=== PATIENT | male | born 1980 | race Caucasian/White ===

== ENCOUNTER 2024-07-31 09:45 | Inpatient (IN) ==
--- NOTE | 2024-07-31 10:13 | Emergency Department Note ---
History of Present Illness General Chief complaint: Chest Pain Stated complaint: CHEST PAINS, DIZZY Time Seen by Provider: 07/31/24 09:50 History of Present Illness Maximum Pain Intensity: 7 This is a 44-year-old male with a history of hypertension, hyperlipidemia, type 2 diabetes that presents to the emergency department via private vehicle with complaints of "chest pain, dizzy". The patient notes that today while walking up steps outside he began to feel lightheaded and then had chest pain. This is left anterior chest region. This was about 45 minutes prior to arrival. He notes now that he is resting the pain has resolved. He states that while going up the steps and developing a dizziness and chest pain he also felt like his legs became weak bilaterally but that has also resolved. The patient denies any history of MD or PE. No recent leg swelling. The patient does note that the dizziness has improved as well. No speech trouble. No weakness. No preceding or current illness. No fevers. Patient does believe his father had an MD prior to age 65 but not his mother. Home Medications Medication Instructions Recorded Confirmed Type acetaminophen 500 mg tablet 500 mg PO Q6H PRN Pain 07/31/24 07/31/24 History cholecalciferol (vitamin D3) 1,250 50,000 unit PO WK 07/31/24 07/31/24 History mcg (50,000 unit) capsule cyclobenzaprine 10 mg tablet 10 mg PO HS PRN Muscle Spasm 07/31/24 07/31/24 History ibuprofen 200 mg tablet (Advil) 200 mg PO Q6H PRN Pain 07/31/24 07/31/24 History lisinopril 10 mg tablet 10 mg PO HS 07/31/24 07/31/24 History paroxetine HCl 10 mg tablet 10 mg PO QAM 07/31/24 07/31/24 History paroxetine HCl 20 mg tablet 20 mg PO QAM 07/31/24 07/31/24 History rosuvastatin 10 mg tablet 10 mg PO HS 07/31/24 07/31/24 History tirzepatide 7.5 mg/0.5 mL 7.5 mg subcut WK 07/31/24 07/31/24 History subcutaneous pen injector (Mounjaro) Allergies Allergy/AdvReac Type Severity Reaction Status Date / Time No Known Allergies Allergy Unverified 07/31/24 12:21 Past Med/Surg History Problem List (Updated 07/31/24 @ 14:32 by Kenny Rahman PA-C) Dizziness (Acute) Chest pain (Acute) Medical History (Updated 07/31/24 @ 14:32 by Kenny Rahman PA-C) DM2 (diabetes mellitus, type 2) HTN (hypertension) HLD (hyperlipidemia) Chest pain, rule out acute myocardial infarction Surgical History (Updated 07/31/24 @ 13:25 by GRECIA King) No pertinent past surgical history Family History (Updated 07/31/24 @ 13:25 by GRECIA King) Brother Heart disease Father Heart disease Social History (Updated 07/31/24 @ 13:26 by GRECIA King) Smoking Status: Former smoker Tobacco Type: Cigarettes Smoking End Date: 04/01; Second Hand Exposure: No; Do You Dip or Chew Tobacco: No; Tobacco Cessation Education Requested by Patient: No Hx Alcohol Use: No Hx Substance Use: Yes (occasional THC gummy) Preferred Language: Welsh Feels Safe at Home: Yes Review of Systems A total of 10 systems reviewed and were otherwise negative Physical Exam Vital Signs Vital Signs - 24 hr 07/31/24 09:48 07/31/24 10:02 07/31/24 10:07 Temperature 36.8 C Temperature Source Oral Pulse Rate 82 81 Pulse Rate [Apical] Pulse Strength [Apical] Respiratory Rate 18 Respiratory Effort / Characteristics Respiratory Depth Respiratory Pattern Blood Pressure 121/84 Blood Pressure [Left Arm] Blood Pressure Mean 96 Blood Pressure Mean [Left Arm] Blood Pressure Position Sitting Blood Pressure Position [Left Arm] Pulse Oximetry 100 96 Oxygen Delivery Method Room Air Room Air Sepsis Recent Fever Within 48 Hours No Sepsis New/Unexplained Change in Mental Status No Sepsis Action Taken by Nursing No Action Required 07/31/24 10:50 07/31/24 12:00 Temperature Temperature Source Pulse Rate Pulse Rate [Apical] 79 87 Pulse Strength [Apical] Normal Respiratory Rate 19 20 Respiratory Effort / Characteristics Non-Labored Spontaneous Non-Labored Spontaneous Respiratory Depth Normal Normal Respiratory Pattern Regular Blood Pressure Blood Pressure [Left Arm] 129/86 106/72 Blood Pressure Mean Blood Pressure Mean [Left Arm] 100 83 Blood Pressure Position Blood Pressure Position [Left Arm] Semi-fowlers Pulse Oximetry 100 100 Oxygen Delivery Method Room Air Room Air Sepsis Recent Fever Within 48 Hours Sepsis New/Unexplained Change in Mental Status Sepsis Action Taken by Nursing VITAL SIGNS - Vital signs and nursing notes were reviewed. Stable and afebrile. GENERAL -44-year-old male appearing his stated age who is in no acute distress. Communicates well with provider and answers questions appropriately. SKIN - Without rashes. No meningeal or petechial rash. HEAD - NC/AT. EYES - PERRL with EOMI bilaterally. Sclera anicteric. EARS - No deformities of external structures noted on gross examination bilaterally. External auditory canals without discharge or otorrhea. Tympanic membranes pearly ibrahim without retraction or bulging. No fluid or purulent material visualized behind the TM. Handle of malleus, umbo, cone of light, pars tensa/flaccid all easily visualized. NOSE - Midline and without cyanosis. No epistaxis or purulent drainage noted. Septum midline without deviation or septal hematoma noted. MOUTH/OROPHARYNX - Without perioral cyanosis. NECK - Neck with FROM. No nuchal rigidity. LUNGS - Chest wall symmetric without accessory muscle use, intercostals retractions, or central cyanosis. Normal vesicular breath sounds CTA B/L. No wheezes, rales, or rhonchi appreciated. CARDIAC - RRR ABDOMEN - Abdominal contour normal without pulsations or visible masses. BS normoactive all four quadrants. No tenderness, palpable masses, hepatosplenomegaly, or ascites noted. EXTREMITIES - No clubbing or peripheral cyanosis. +5/5 strength noted in UE/LE bilaterally. NEUROLOGIC - Cranial nerves II through XII grossly intact. PSYCH -alert, oriented and pleasant on examination. Course Administered Medications Sodium Chloride (Nss) 500 mls @ 125 mls/hr IV .Q4H REPLACED BY [facility] Stop: 07/31/24 16:29 Last Admin: 07/31/24 12:31 Dose: 125 mls/hr Documented By: MMF Discontinued Medications Aspirin (Aspirin 81 Mg Chew) 324 mg PO NOW STA Stop: 07/31/24 11:07 Last Admin: 07/31/24 11:11 Dose: 324 mg Documented By: RAINA Ioversol (Optiray 320 125ml) 120 ml IV ONCE ONE Stop: 07/31/24 11:35 Last Admin: 07/31/24 11:34 Dose: 120 ml Documented By: TENZIN Medical Decision Making Laboratory Data 07/31/24 10:10 07/31/24 10:10 Lab Results 07/31/24 Range/Units 10:10 WBC 13.62 H (4.8-10.8) K/ul RBC 4.63 L (4.70-6.10) M/uL Hgb 14.7 (14.0-18.0) g/dl Hct 43.4 (42.0-52.0) % MCV 93.7 (80.0-100.0) fL MCH 31.7 (25.0-34.0) pg MCHC 33.9 (32.0-36.0) g/dL RDW Std Deviation 45.2 (36.4-46.3) fL RDW Coeff of Shannon 13.2 (11.5-14.5) % Plt Count 375 (130-400) K/uL MPV 10.3 (9.4-12.4) fL Immature Gran % (Auto) 0.2 % Neut % (Auto) 66.6 % Lymph % (Auto) 23.6 % Howard % (Auto) 6.8 % Eos % (Auto) 2.6 % Baso % (Auto) 0.2 % Neut # (Auto) 9.07 H (1.40-6.50) K/uL Lymph # (Auto) 3.21 (1.20-3.40) K/uL Howard # (Auto) 0.92 H (0.11-0.59) K/uL Eos # (Auto) 0.36 (0.00-0.50) K/uL Baso # (Auto) 0.03 (0.00-0.20) K/uL Immature Gran # (Auto) 0.03 (0.01-0.20) K/uL PT 10.7 (9.0-12.0) Seconds INR 1.0 (0.9-1.1) APTT 27 (21-31) Seconds PTT Ratio 1.0 D-Dimer < 190 (0-500) ug/L FEU Sodium 138 (136-145) mmol/L Potassium 4.3 (3.5-5.1) mmol/L Chloride 103 (98-107) mmol/L Carbon Dioxide 26 (21-32) mmol/L Anion Gap 9 (3-11) BUN 15 (6-23) mg/dl Creatinine 0.88 (0.6-1.4) mg/dl Est Cr Clr Drug Dosing 133.4 ml/min eGFR 108.07 BUN/Creatinine Ratio 17.0 (10-20) Glucose 102 H (70-99(Fasting)) mg/dl Calcium 9.5 (8.6-10.3) mg/dl Magnesium 1.7 (1.7-2.4) mg/dl Total Bilirubin 0.5 (0.2-1.0) mg/dl AST 17 (13-39) U/L ALT 17 (7-52) U/L Alkaline Phosphatase 98 (34-104) U/L Troponin I High Sens < 2.3 (0-20) pg/ml Total Protein 7.3 (6.0-8.3) gm/dl Albumin 4.3 (3.4-5.0) gm/dl Globulin 3.0 (2.5-4.0) gm/dl Albumin/Globulin Ratio 1.4 (0.9-2) Lipase 26 (11-82) U/L TSH 1.451 (0.300-4.500) uIu/ml Imaging Data Radiologist's Impression: Chest X-Ray 07/31/24 10:12 XR chest 1V portable CLINICAL HISTORY: chest pain COMPARISON STUDY: None FINDINGS: Heart size and pulmonary vasculature are normal. No effusion, consolidation, or pneumothorax. IMPRESSION: No acute findings. ACT 112: Negative or not required by law. Electronically signed by: Bari Meade M.D. 07/31/2024 10:42 AM Chest CTA 07/31/24 10:48 CT angio chest PE protocol CT DOSE: 1728.37 mGy.cm HISTORY: 44 years-old Male with dizziness, exertional chest pain. Acute dizziness with chest pain TECHNIQUE: Multiple CTA images of the chest were obtained after the intravenous administration of 120 ml Optiray. Coronal and sagittal MIPS were obtained from the axial data set and were submitted for review. All measurements were obtained according to NASCET criteria. A dose lowering technique was utilized adhering to the principles of ALARA. COMPARISON: Chest radiograph of same day FINDINGS: CTA: Heart is upper limits of normal in size. No pericardial effusion. No thoracic aortic aneurysm or dissection. Patency of the imaged vessels. No pulmonary emboli are identified. CT CHEST: No dominant thyroid nodule is seen. No pathologically adenopathy by CT size criteria. There is no pneumothorax, pleural effusion or focal airspace consolidation. The imaged upper abdominal structures are unremarkable. Cholecystectomy with probable splenic tissue within the abdominal left upper quadrant. Mild nodular thickening of the adrenal glands, right greater than left. The osseous structures appear intact. IMPRESSION: Unremarkable CTA of the chest. ACT 112: Negative or not required by law. The above report was generated using voice recognition software. It may contain grammatical, syntax or spelling errors. Electronically signed by: Cholo Frankel M.D. 07/31/2024 12:06 PM Head CTA 07/31/24 10:48 CT angio head wo/w CLINICAL HISTORY: dizziness, exertional chest pain COMPARISON STUDY: None FINDINGS: Noncontrast head CT: No intracranial hemorrhage seen. No mass effect, midline shift, or hydrocephalus. No skull fracture seen. CTA: The distal internal carotid and vertebral arteries show no significant narrowing or occlusion. Basilar artery is widely patent. Anterior, middle, and posterior cerebral arteries show no significant narrowing or occlusion. No intracranial aneurysm seen. Cerebral venous sinuses opacify normally. IMPRESSION: 1. No acute findings seen. 2. No significant arterial narrowing or occlusion seen at the brain. ACT 112: Negative or not required by law. Electronically signed by: Bari Meade M.D. 07/31/2024 12:02 PM Neck CTA 07/31/24 10:48 CT angio neck with con CLINICAL HISTORY: 44 years-old Male with dizziness, exertional chest pain. Acute dizziness with chest pain COMPARISON STUDY: CTA of the head of same day TECHNIQUE: Following the IV administration of 1 20 mL of Optiray, CT angiogram of the neck was performed from the aortic arch to the skull base. Images are reviewed in the axial, sagittal, and coronal planes. 3-D MIPS images are created and assessed. IV contrast was administered without complication. All measurements were calculated based on NASCET criteria. A dose lowering technique was utilized adhering to the principles of ALARA. FINDINGS: Three-vessel morphology of the thoracic aortic arch. Patency of the innominate and image subclavian arteries. The common and internal carotid arteries are widely patent and within normal limits. There is no significant atherosclerosis. The vertebral arteries are codominant and widely patent. No aneurysm, dissection, high-grade stenosis or arterial occlusion identified. Lung apices are clear. No pneumothorax. Unremarkable thyroid. Nonenlarged cervical chain lymph nodes are likely physiologic. No acute inflammatory changes. No acute fracture. IMPRESSION:Unremarkable CTA of the neck. ACT 112: Negative or not required by law. The above report was generated using voice recognition software. It may contain grammatical, syntax or spelling errors. Electronically signed by: Cholo Frankel M.D. 07/31/2024 11:56 AM MDM Narrative Patient was seen and evaluated as above in room B12. Review was performed of triage nursing notes and vital signs. No visits for review in the EMR at time of evaluation. After obtaining a thorough history and physical examination the above work up was performed. Patient presents to us today for evaluation of exertional chest pain as well as dizziness. On assessment the patient is well- appearing and nontoxic. He has had essentially resolution of symptoms at this time now that he is resting. No history of MD or PE. Options of care were discussed with the patient. IV access was established. Labs were drawn. There is leukocytosis 13.62. No concerning anemia. No emergent metabolic disturbance. D-dimer negative making PE less likely. Coags normal. No evidence of kidney or liver failure. Mild hyperglycemia 102. Initial troponin returned negative. Lipase normal. TSH reveals euthyroid state. EKG per my interpretation reveals normal sinus rhythm at a rate of 87 bpm. QTc 464. QRS 94. No ST elevation on this rhythm tracing. Indication for the EKG is chest pain. Aspirin was ordered. NIHSS: 0. He continues to note some dizziness with movements of the head. At this time with the patient having dizziness and exertional chest pain we will proceed with angio studies of the head, neck and chest to further assess. These returned without significant finding. I did discuss case with Dr. Elkins of cardiology. We agree with hospitalist admission, trend troponin, resting echocardiogram, and Doppler studies of the lower extremities (noting that patient's reported leg symptoms earlier today) with the associated exertional chest pain and dizziness. The patient does have risk factors which would increase risk of cardiovascular event. With the patient and exertional symptoms, I do believe that further evaluation and management in the inpatient setting is warranted. Case discussed with the hospitalist service. Please refer to further documentation regarding his stay. GCS: 15 In the evaluation and treatment of this patient the following differential diagnoses were entertained: MD, PE, dissection, hypoglycemia, dehydration, upper respiratory illness, among others. Impression & Plan Chest pain, Dizziness Discharge Plan Visit Data Chief Complaint: Chest Pain Stated Complaint: CHEST PAINS, DIZZY ED Provider: Ellis Singh ED Midlevel Provider: Kenny Rahman Discharge Problem: Chest pain, Dizziness Patient Disposition: Admitted As Inpatient Condition: Good Discharge Instructions Interventions: ED Discharge Assessment Last Done: 07/31/24 13:02
[2024-07-31 10:16] LABS: Basophils # (auto) 0.03 K/uL (0.00-0.20); Basophils % (auto) 0.2 %; Eosinophils # (auto) 0.36 K/uL (0.00-0.50); Eosinophils % (auto) 2.6 %; Hematocrit (blood only) 43.4 % (42.0-52.0); Hemoglobin 14.7 g/dl (14.0-18.0); Immature Granulocytes # (auto) 0.03 K/uL (0.01-0.20); Immature Granulocytes % (auto) 0.2 %; Lymphocytes # (auto) 3.21 K/uL (1.20-3.40); Lymphocytes % (auto) 23.6 %; Mean Corpuscular Hemoglobin 31.7 pg (25.0-34.0); Mean Corpuscular Hgb Conc 33.9 g/dL (32.0-36.0); Mean Corpuscular Volume 93.7 fL (80.0-100.0); Mean Platelet Volume 10.3 fL (9.4-12.4); Monocytes # (auto) 0.92 K/uL (0.11-0.59); Monocytes % (auto) 6.8 %; Neutrophils # (auto) 9.07 K/uL (1.40-6.50); Neutrophils % (auto) 66.6 %; Platelet Count 375 K/uL (130-400); RDW Coefficient of Variation 13.2 % (11.5-14.5); RDW Standard Deviation 45.2 fL (36.4-46.3); Red Blood Count 4.63 M/uL (4.70-6.10); White Blood Count 13.62 K/ul (4.8-10.8)
[2024-07-31 10:35] LABS: D Dimer < 190 ug/L FEU (0-500); Partial Thromboplastin Time 27 Seconds (21-31); Prothrombin Time 10.7 Seconds (9.0-12.0)
--- NOTE | 2024-07-31 10:43 | XRay Report ---
XR chest 1V portable CLINICAL HISTORY: chest pain COMPARISON STUDY: None FINDINGS: Heart size and pulmonary vasculature are normal. No effusion, consolidation, or pneumothora x. IMPRESSION: No acute findings. ACT 112: Negative or not required by law. Electronically signed by: Bari Meade M.D. 07/31/2024 10:42 AM
[2024-07-31 10:52] LABS: Albumin Level 4.3 gm/dl (3.4-5.0); Anion Gap 9 (3-11); Bilirubin,Total 0.5 mg/dl (0.2-1.0); Calcium 9.5 mg/dl (8.6-10.3); Carbon Dioxide 26 mmol/L (21-32); Chloride 103 mmol/L (98-107); Magnesium 1.7 mg/dl (1.7-2.4); Potassium 4.3 mmol/L (3.5-5.1); Sodium 138 mmol/L (136-145)
[2024-07-31 10:56] LABS: Troponin I High Sensitivity < 2.3 pg/ml (0-20)
[2024-07-31 10:58] LABS: Alanine Aminotransferase 17 U/L (7-52); Albumin Globulin Ratio 1.4 (0.9-2); Alkaline Phosphatase 98 U/L (34-104); Aspartate Aminotransferase 17 U/L (13-39); Blood Urea Nitrogen 15 mg/dl (6-23); Creatinine Clr Calc Pharmacy 133.4 ml/min; Glucose 102 mg/dl (70-99(Fasting)); Lipase 26 U/L (11-82); Total Protein 7.3 gm/dl (6.0-8.3)
[2024-07-31 11:05] LABS: Thyroid Stimulating Hormone 1.451 uIu/ml (0.300-4.500)
[2024-07-31] MEDS: ASPIRIN 81 MG CHEW PO STA (11:11)
[2024-07-31] MEDS: OPTIRAY 320 125ml IV ONE (11:34)
--- NOTE | 2024-07-31 11:57 | CT Scan Report ---
CT angio neck with con CLINICAL HISTORY: 44 years-old Male with dizziness, exertional chest pain. Acute dizziness with ch est pain COMPARISON STUDY: CTA of the head of same day TECHNIQUE: Following the IV administration of 1 20 mL of Optiray, CT angiogram of the neck was perfor med from the aortic arch to the skull base. Images are reviewed in the axial, sagittal, and coronal p lanes. 3-D MIPS images are created and assessed. IV contrast was administered without complication. A ll measurements were calculated based on NASCET criteria. A dose lowering technique was utilized adh ering to the principles of ALARA. FINDINGS: Three-vessel morphology of the thoracic aortic arch. Patency of the innominate and image subclavian a rteries. The common and internal carotid arteries are widely patent and within normal limits. There i s no significant atherosclerosis. The vertebral arteries are codominant and widely patent. No aneurys m, dissection, high-grade stenosis or arterial occlusion identified. Lung apices are clear. No pneumothorax. Unremarkable thyroid. Nonenlarged cervical chain lymph nodes are likely physiologic. No acute inflammatory changes. No acute fracture. IMPRESSION:Unremarkable CTA of the neck. ACT 112: Negative or not required by law. The above report was generated using voice recognition software. It may contain grammatical, syntax o r spelling errors. Electronically signed by: Cholo Frankel M.D. 07/31/2024 11:56 AM
--- NOTE | 2024-07-31 12:04 | CT Scan Report ---
CT angio head wo/w CLINICAL HISTORY: dizziness, exertional chest pain COMPARISON STUDY: None FINDINGS: Noncontrast head CT: No intracranial hemorrhage seen. No mass effect, midline shift, or hydrocephalus . No skull fracture seen. CTA: The distal internal carotid and vertebral arteries show no significant narrowing or occlusion. B asilar artery is widely patent. Anterior, middle, and posterior cerebral arteries show no significant narrowing or occlusion. No intracranial aneurysm seen. Cerebral venous sinuses opacify normally. IMPRESSION: 1. No acute findings seen. 2. No significant arterial narrowing or occlusion seen at the brain. ACT 112: Negative or not required by law. Electronically signed by: Bari Meade M.D. 07/31/2024 12:02 PM
--- NOTE | 2024-07-31 12:07 | CT Scan Report ---
CT angio chest PE protocol CT DOSE: 1728.37 mGy.cm HISTORY: 44 years-old Male with dizziness, exertional chest pain. Acute dizziness with chest pain TECHNIQUE: Multiple CTA images of the chest were obtained after the intravenous administration of 120 ml Optiray. Coronal and sagittal MIPS were obtained from the axial data set and were submitted for review. All measurements were obtained according to NASCET criteria. A dose lowering technique was u tilized adhering to the principles of ALARA. COMPARISON: Chest radiograph of same day FINDINGS: CTA: Heart is upper limits of normal in size. No pericardial effusion. No thoracic aortic aneurysm or diss ection. Patency of the imaged vessels. No pulmonary emboli are identified. CT CHEST: No dominant thyroid nodule is seen. No pathologically adenopathy by CT size criteria. There is no pn eumothorax, pleural effusion or focal airspace consolidation. The imaged upper abdominal structures are unremarkable. Cholecystectomy with probable splenic tissue within the abdominal left upper quadrant. Mild nodular thickening of the adrenal glands, right great er than left. The osseous structures appear intact. IMPRESSION: Unremarkable CTA of the chest. ACT 112: Negative or not required by law. The above report was generated using voice recognition software. It may contain grammatical, syntax o r spelling errors. Electronically signed by: Cholo Frankel M.D. 07/31/2024 12:06 PM
[2024-07-31] MEDS ORDERED: MAGNESIUM HYDROXIDE SUSP 30 ML UDC PO PRN (12:29)
[2024-07-31] MEDS ORDERED: POLYETHYLENE (MIRALAX) 17 GM PACK PO PRN (12:29)
[2024-07-31] MEDS ORDERED: ONDANSETRON INJ 2 MG/ML 2 ML VIAL IV PRN (12:29)
[2024-07-31] MEDS ORDERED: ALUMINUM/MAGNESIUM SUSP 30 ML UDC PO PRN (12:29)
[2024-07-31] MEDS ORDERED: ACETAMINOPHEN 325 MG TAB PO PRN (12:29)
[2024-07-31] MEDS: SODIUM CHLORIDE 0.9% 500 ML IV SCH (12:31)
--- NOTE | 2024-07-31 12:36 | History & Physical Report ---
<Statement entered by Jovani Matthews, DO - 07/31/24 16:05> I have seen and examined the patient and have discussed the case with the advance practice provider. I have reviewed the advanced practitioner's documentation, and I agree with, and take responsibility for that plan of care. Patient seen while still in the ED. States that he has been diagnosed with diabetes hypertension around [place]. Started Mounjaro, since starting this medication he is lost 100 pounds. Patient gives classic history of some lightheadedness and dizziness when waking up in the morning from the lying down position. Also his Dexcom noted that he is having some hypoglycemia below 70 early in the morning. I am concerned that much of the patient's symptoms are due to the fact that he has having some hypotension and hypoglycemia due to the medication started for his diabetes and hypertension. With his significant weight loss I suspect he may not need as higher doses of these medications or even need any blood pressure medication at all. Will check orthostatic vitals The if blood pressure continues to remain low, consider discontinuing lisinopril on discharge Consider decreasing Mounjaro or holding until patient can follow-up with his PCP Further recommendations for ischemic eval pending cardiology evaluation Further plan of care as mentioned below I spent a total of 26 minutes coordinating, documenting, and providing care for this patient excluding time spent by another provider/QHP. Date of Service July 31, 2024 Assessment & Plan (1) Chest pain, rule out acute myocardial infarction: (2) HLD (hyperlipidemia): (3) HTN (hypertension): (4) DM2 (diabetes mellitus, type 2): Plan 44y/o male that presents to the ED with exertional chest pain resolving with rest that started after climbing two flights of steps this morning with radiation into his jaw causing twitching. Recently diagnosed with DM2, HTN and HLD around gi.Family History of AMI (brother and father). mild leukocytosis 13.62, otherwise electrolytes unremarkable. No transaminitis, initial troponin negative, D-dimer negative. He was started on IV fluids in the ED and loading dose of aspirin. Chest CTA, head/neck CTA, and CXR all unremarkable and no signs of dissection or stenosis. We will trend Troponin levels, obtain ECHO, ortho BPs, obtain biofire, UA, and obtain formal Cardiology consultation. Will hold Lisinopril given soft BP and will ask glycemic pharmacy to monitor. Please see A/P for further information. Chest pain, R/O ACS: Acute Exertional chest pain while climbing two flights of stairs this AM. Lightheadedness and weakness associated with symptoms. Initial trop negative; trend ECG NSR Electrolytes unremarkable Chest CTA, head/neck CTA, and CXR all unremarkable and no signs of dissection or stenosis Brother and father with H/O AMI Quit smoking 5 months ago ECHO ordered Obtain Orthostatic BPs Cardiology consultation DM2: Newly diagnosed 03/2024 Takes Mounjaro (compliant); hold inpatient. Reports 90 lb weight loss since Mar 2024. Usually takes dose on Wednesdays Has DEXcom for monitoring; AM glucose 70-90's Placed on ACHS SSI No A1C available at the moment; check in AM Glycemic consult Should follow with nurse educator on DC HTN: Chronic Takes lisinopril; hold for now given soft BP HLD: Chronic Takes rosuvastatin; continue Depression: Takes Paxil; continue Disposition: PCP: [facility] Code Status: Full VTE Prophyalxis: Lovenox SQ Care Coordinated with Dr. Matthews. See his addendum for further details. I spent a total of 81 minutes coordinating, documenting, and providing care for this patient excluding time spent inthe performance of separately billed services or time spent by another provider/QHP. History of Present Illness Chief Complaint: exertional chest pain Primary Care Provider: GRECIA Coley Mr. Chun is a 44 year old male that presents to the ED with exertional chest pain resolving with rest that started after climbing two flights of steps this morning with radiation into his jaw causing twitching. He also reports lightheadedness and weakness. He reports that he has felt confused over the past month intermittently with some blurry vision. He was recently diagnosed with DM2, HTN and HLD around . He reports losing nearly 90 lbs since and is compliant with his medications. Blood sugars range 80-90 in the morning. May be a component of his dose requiring adjustment given his weight loss. Family History of AMI (brother and father). reportedly quit smoking 5 months ago. No alcohol use, occasional recreational THC gummy. In the ED, mild leukocytosis 13.62, otherwise electrolytes unremarkable. No transaminitis, initial troponin negative, D-dimer negative. He was started on IV fluids in the ED and loading dose of aspirin. Chest CTA, head/neck CTA, and CXR all unremarkable and no signs of dissection or stenosis. Reports that [place] medical care [place] of [place] in [place], [place] and his symptoms started just before for which a stress test was performed as an outpatient and negative. 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 He reports he has had green sputum that started a few days ago. Otherwise, denies current Chest pain, palpitations, SOB, orthopnea, N/V/D, recent falls or trauma. For now, given the persistent symptoms he has been having over the past few months, he will be admitted for further evaluation and management. We will trend Troponin levels, obtain ECHO, ortho BPs, obtain biofire, UA, and obtain formal Cardiology consultation. Will hold Lisinopril given soft BP and will ask glycemic pharmacy to monitor. Please see A/P for further information. Allergies Allergy/AdvReac Type Severity Reaction Status Date / Time No Known Allergies Allergy Unverified 07/31/24 12:21 Home Medications Medication Instructions Recorded Confirmed Type acetaminophen 500 mg tablet 500 mg PO Q6H PRN Pain 07/31/24 07/31/24 History cholecalciferol (vitamin D3) 1,250 50,000 unit PO WK 07/31/24 07/31/24 History mcg (50,000 unit) capsule cyclobenzaprine 10 mg tablet 10 mg PO HS PRN Muscle Spasm 07/31/24 07/31/24 History ibuprofen 200 mg tablet (Advil) 200 mg PO Q6H PRN Pain 07/31/24 07/31/24 History lisinopril 10 mg tablet 10 mg PO HS 07/31/24 07/31/24 History paroxetine HCl 10 mg tablet 10 mg PO QAM 07/31/24 07/31/24 History paroxetine HCl 20 mg tablet 20 mg PO QAM 07/31/24 07/31/24 History rosuvastatin 10 mg tablet 10 mg PO HS 07/31/24 07/31/24 History tirzepatide 7.5 mg/0.5 mL 7.5 mg subcut WK 07/31/24 07/31/24 History subcutaneous pen injector (Mounmorenaro) Past Med/Surg History Problem List Medical History (Updated 07/31/24 @ 13:25 by GRECIA King) DM2 (diabetes mellitus, type 2) HTN (hypertension) HLD (hyperlipidemia) Chest pain, rule out acute myocardial infarction Surgical History (Updated 07/31/24 @ 13:25 by GRECIA King) No pertinent past surgical history Family History (Updated 07/31/24 @ 13:25 by GRECIA King) Brother Heart disease Father Heart disease Social History (Updated 07/31/24 @ 13:26 by GRECIA King) Smoking Status: Former smoker Tobacco Type: Cigarettes Second Hand Exposure: No; Do You Dip or Chew Tobacco: No; Hx Alcohol Use: No Hx Substance Use: Yes (occasional THC gummy) Preferred Language: Occitan Feels Safe at Home: Yes Review of Systems Review of Systems: Neuro: (-) Falls, trauma, slurred speech HEENT: (-) BELCHER, dizziness, dysphagia, visual or auditory changes CV: (-) CP, palpitations, swelling Resp: (-) SOB GI: (-) appetite changes, N/V/D, bowel changes : (-) urinary changes Skin: (-) rashes Psych: (-) anxiety, depression Physical Exam Physical Exam: Neuro: AAOx4, PERRLA, no aphagia, memory changes, CNII-XII grossly intact HEENT: head normocephalic, moist mucus membranes CV: S1/S2, (-) M/G/R, (-) edema, cap refill < 3 seconds Resp: Lungs CTA in all sullivan. On RA GI: Abdomen S/NT/ND, Ax4 bowel sounds, (-) CVA tenderness Musculoskeletal: 5/5 B/L UE strength, 5/5 B/L LE strength. No gait disturbance Skin: (-) rashes , (-) erythema. Psych: euthymic, but flat mood Results & Data Results & Data Vital Signs (Past 12 Hours) Vital Signs Temp Pulse Pulse Resp BP BP Pulse Ox 07/31/24 12:00 87 20 106/72 100 07/31/24 10:50 79 19 129/86 100 07/31/24 10:07 96 07/31/24 10:02 81 07/31/24 09:48 36.8 C 82 18 121/84 100 O2 Del Method 07/31/24 12:00 Room Air 07/31/24 10:50 Room Air 07/31/24 10:07 Room Air 07/31/24 10:02 07/31/24 09:48 Room Air Laboratory Results Short CBC 07/31/24 Range/Units 10:10 WBC 13.62 H (4.8-10.8) K/ul Hgb 14.7 (14.0-18.0) g/dl Hct 43.4 (42.0-52.0) % Plt Count 375 (130-400) K/uL BMP 07/31/24 10:10 Sodium 138 Potassium 4.3 Chloride 103 Carbon Dioxide 26 BUN 15 Creatinine 0.88 Glucose 102 H Calcium 9.5 Liver Function 07/31/24 Range/Units 10:10 Total Bilirubin 0.5 (0.2-1.0) mg/dl AST 17 (13-39) U/L ALT 17 (7-52) U/L Alkaline Phosphatase 98 (34-104) U/L Albumin 4.3 (3.4-5.0) gm/dl Diagnostic Findings Chest X-Ray 07/31/24 10:12 XR chest 1V portable CLINICAL HISTORY: chest pain COMPARISON STUDY: None FINDINGS: Heart size and pulmonary vasculature are normal. No effusion, consolidation, or pneumothorax. IMPRESSION: No acute findings. ACT 112: Negative or not required by law. Electronically signed by: Bari Meade M.D. 07/31/2024 10:42 AM Chest CTA 07/31/24 10:48 CT angio chest PE protocol CT DOSE: 1728.37 mGy.cm HISTORY: 44 years-old Male with dizziness, exertional chest pain. Acute dizziness with chest pain TECHNIQUE: Multiple CTA images of the chest were obtained after the intravenous administration of 120 ml Optiray. Coronal and sagittal MIPS were obtained from the axial data set and were submitted for review. All measurements were obtained according to NASCET criteria. A dose lowering technique was utilized adhering to the principles of ALARA. COMPARISON: Chest radiograph of same day FINDINGS: CTA: Heart is upper limits of normal in size. No pericardial effusion. No thoracic aortic aneurysm or dissection. Patency of the imaged vessels. No pulmonary emboli are identified. CT CHEST: No dominant thyroid nodule is seen. No pathologically adenopathy by CT size criteria. There is no pneumothorax, pleural effusion or focal airspace consolidation. The imaged upper abdominal structures are unremarkable. Cholecystectomy with probable splenic tissue within the abdominal left upper quadrant. Mild nodular thickening of the adrenal glands, right greater than left. The osseous structures appear intact. IMPRESSION: Unremarkable CTA of the chest. ACT 112: Negative or not required by law. The above report was generated using voice recognition software. It may contain grammatical, syntax or spelling errors. Electronically signed by: Cholo Frankel M.D. 07/31/2024 12:06 PM Head CTA 07/31/24 10:48 CT angio head wo/w CLINICAL HISTORY: dizziness, exertional chest pain COMPARISON STUDY: None FINDINGS: Noncontrast head CT: No intracranial hemorrhage seen. No mass effect, midline shift, or hydrocephalus. No skull fracture seen. CTA: The distal internal carotid and vertebral arteries show no significant narrowing or occlusion. Basilar artery is widely patent. Anterior, middle, and posterior cerebral arteries show no significant narrowing or occlusion. No intracranial aneurysm seen. Cerebral venous sinuses opacify normally. IMPRESSION: 1. No acute findings seen. 2. No significant arterial narrowing or occlusion seen at the brain. ACT 112: Negative or not required by law. Electronically signed by: Bari Meade M.D. 07/31/2024 12:02 PM Neck CTA 07/31/24 10:48 CT angio neck with con CLINICAL HISTORY: 44 years-old Male with dizziness, exertional chest pain. Acute dizziness with chest pain COMPARISON STUDY: CTA of the head of same day TECHNIQUE: Following the IV administration of 1 20 mL of Optiray, CT angiogram of the neck was performed from the aortic arch to the skull base. Images are reviewed in the axial, sagittal, and coronal planes. 3-D MIPS images are created and assessed. IV contrast was administered without complication. All measurements were calculated based on NASCET criteria. A dose lowering technique was utilized adhering to the principles of ALARA. FINDINGS: Three-vessel morphology of the thoracic aortic arch. Patency of the innominate and image subclavian arteries. The common and internal carotid arteries are widely patent and within normal limits. There is no significant atherosclerosis. The vertebral arteries are codominant and widely patent. No aneurysm, dissection, high-grade stenosis or arterial occlusion identified. Lung apices are clear. No pneumothorax. Unremarkable thyroid. Nonenlarged cervical chain lymph nodes are likely physiologic. No acute inflammatory changes. No acute fracture. IMPRESSION:Unremarkable CTA of the neck. ACT 112: Negative or not required by law. The above report was generated using voice recognition software. It may contain grammatical, syntax or spelling errors. Electronically signed by: Cholo Frankel M.D. 07/31/2024 11:56 AM Code Status & VTE Plan Code Status Full Code VTE Prophylaxis Plan VTE Prophylaxis will be ordered: Yes
[2024-07-31] MEDS ORDERED: GLUCAGON FOR INJ 1 MG VIAL SQ PRN ×2 (13:29→13:32)
[2024-07-31] MEDS ORDERED: DEXTROSE 50% 50 ML SYRINGE IV PRN ×2 (13:29→13:32)
[2024-07-31] MEDS ORDERED: GLUCOSE 10 TAB/TUBE PO PRN ×2 (13:29→13:32)
[2024-07-31] MEDS ORDERED: GLUCOSE 40% GEL 15 GM TUBE PO PRN ×2 (13:29→13:32)
[2024-07-31] MEDS ORDERED: CYCLOBENZAPRINE HCL 10 MG TAB PO PRN (13:31)
[2024-07-31] MEDS ORDERED: CARBOHYDRATES FOR HYPOGLYCEMIA PO PRN (13:32)
[2024-07-31] MEDS ORDERED: PHARMACY GLYCEMIC MGMT CONSULT PRN (13:32)
--- NOTE | 2024-07-31 14:20 | Pharmacy Report ---
Pharmacy Glycemic Short Note 2 - Date of Service July 31, 2024 - Glycemic Short BSG Results (Last 24 hours): 07/31/24 10:10 Glucose 102 H OUTPATIENT ANTIDIABETIC REGIMEN: * Mounjaro 7.5mg SQ weekly HbA1c ordered for 08/01 ASSESSMENT: * 44 year old male admitted today for chest pain. Pharmacy was consulted for glycemic management in this newly diagnosed (march of 2024) type 2 diabetic while he is admitted. Of note, patient reports a 90lb weight loss since starting Mounjaro in March. * BSG on admit was 102mg/dL. Will not start basal insulin at this time. Will start a very conservative bolus insulin regimen with an increased goal BSG range initially until additional BSGs are obtained. With recent, rapid weight loss patient likely won't need much insulin coverage. PLAN FOR INPATIENT GLYCEMIC CONTROL: * Hold outpatient diabetes medications * Basal insulin * hold * Bolus insulin * NovoLog per scale ACHS or Q6hrs while NPO * Goal Range: Low 120 mg/dL - High 150 mg/dL * Correction Factor: 35 mg/dL/unit * Nutritional / Prandial insulin per carb ratio; NONE
--- NOTE | 2024-07-31 14:33 | Electrocardiogram Report ---
Test Reason : Blood Pressure : */* mmHG Vent. Rate : 87 BPM Atrial Rate : 87 BPM P-R Int : 188 ms QRS Dur : 94 ms QT Int : 386 ms P-R-T Axes : 69 13 55 degrees QTcB Int : 464 ms Normal sinus rhythm Low voltage QRS Borderline ECG No previous ECGs available Confirmed by Macaroi Shields ([id number]) on 07/31/2024 2:33:16 PM Referred By: Confirmed By: Macario Shields
[2024-07-31 15:03] LABS: Adenovirus PCR Not Detected (NotDetected); Bordetella parapertussis PCR Not Detected (NotDetected); Bordetella pertussis PCR Not Detected (NotDetected); Chlamydia pneumoniae PCR Not Detected (NotDetected); Coronavirus 229E PCR Not Detected (NotDetected); Coronavirus CoV-2 (COVID19)PCR Not Detected (NotDetected); Coronavirus HKU1 PCR Not Detected (NotDetected); Coronavirus NL63 PCR Not Detected (NotDetected); Coronavirus OC43PCR Not Detected (NotDetected); Human Metapneumovirus PCR Not Detected (NotDetected); Influenza A PCR Not Detected (NotDetected); Influenza B PCR Not Detected (NotDetected); Mycoplasma pneumoniae PCR Not Detected (NotDetected); Parainfluenza Virus 1 PCR Not Detected (NotDetected); Parainfluenza Virus 2 PCR Not Detected (NotDetected); Parainfluenza Virus 3 PCR Not Detected (NotDetected); Parainfluenza Virus 4 PCR Not Detected (NotDetected); Respiratory Syncytial VirusPCR Not Detected (NotDetected); Rhinovirus/Enterovirus PCR Not Detected (NotDetected)
--- NOTE | 2024-07-31 15:23 | Ultrasound Report ---
BILATERAL LOWER EXTREMITY VENOUS DOPPLER HISTORY: Acute pain and swelling of the lower legs Bilat lower leg weakness sensation COMPARISON STUDY: None. FINDINGS: There is normal compressibility, flow, and augmentation within the bilateral lower extremit y deep venous systems. IMPRESSION: No DVT within the right or left lower extremity. ACT 112: Negative or not required by law. Electronically signed by: Cholo Frankel M.D. 07/31/2024 3:22 PM
[2024-07-31] MEDS: CARBOHYDRATES FOR HYPOGLYCEMIA PO PRN (15:45)
[2024-07-31] MEDS: INSULIN ASPART PER UNIT CHARGE SC SCH (16:26)
[2024-07-31] MEDS: D5W AND 1/2NSS 1,000 ML IV SCH (17:39)
[2024-07-31] MEDS: ROSUVASTATIN CALCIUM 10 MG TAB PO SCH (20:17)
[2024-08-01 00:40] LABS: Appearance Urine Clear (Clear); Bilirubin Urine Negative (Negative); Blood Urine Negative (Negative); Color Urine Yellow; Glucose Urine UA Negative (Negative); Ketones Urine Trace (Negative); Leukocyte Esterase Urine Negative (Negative); Nitrite Urine Negative (Negative); Protein Urine Negative (Negative); Specific Gravity Urine 1.031 (1.000-1.030); Urobilinogen Urine Negative (Negative)
[2024-08-01 07:44] LABS: Estimated Average Glucose 114 mg/dl; Hemoglobin A1C 5.6 % (4.5-5.6)
--- NOTE | 2024-08-01 09:59 | Cardiology Consultation ---
Date of Consultation August 01, 2024 Assessment & Plan (1) Chest pain: (2) Dizziness: Patient feeling improved. Question if his symptoms are related to need for reduction in his dose of lisinopril and terzepatide with the patient having had significant weight loss in the last 3 months. Agree with holding lisinopril. High sensitive troponin was negative x 2 yesterday. Will obtain a repeat level as well as a repeat CBC, basic metabolic panel, LDL level, and a hemoglobin A1c. His resting echocardiogram this morning revealed reassuring findings with normal LVEF, no regional wall motion abnormalities, no significant valvular heart disease, grade 1 diastolic dysfunction noted. Proceed with exercise stress echocardiogram for further risk stratification today. History of Present Illness Attending Physician: Jon Eugene MD History of Present Illness Mr Chun is a 44 year old male seen in cardiology consultation per the request of GRECIA Brannon for the evaluation of chest discomfort. 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 Yesterday he was working in the cold. He walked to the second level of the building under construction and had symptoms of feeling short of breath, lightheaded and dizzy. He describes associated chest discomfort that was focal and located under the right clavicle and then under the left clavicle. He also had vague leg heaviness and pain per his description. He has been having said symptoms with exertion for about a week and a half. Over length last night he has felt well and is without any chest discomfort at present. PAST MEDICAL HISTORY: Patient states he was diagnosed with diabetes, hypertension, and dyslipidemia in approximately May, and was placed on new medication including lisinopril 10 mg daily, rosuvastatin 10 mg daily, and tirzepatide. He describes having lost a significant amount of weight, 80 to 100 pounds in the last 3 months. FAMILY HISTORY: Mother at the age of 67 with "fluid in her lungs due to broken heart syndrome "also diabetes, details unknown The patient's father is alive at the age of 77 and has a history of "heart disease, but the details are unknown to the patient. He does not believe his father's had heart surgery, heart stents, or a pacemaker The patient has 2 brothers, his older brother has had a heart procedure but he does not know any details about it SOCIAL HISTORY: Lives alone He has been an on and off again smoker and quit approximately 7 months ago Allergies Allergy/AdvReac Type Severity Reaction Status Date / Time No Known Allergies Allergy Unverified 07/31/24 12:21 Home Medications Medication Instructions Recorded Confirmed Type acetaminophen 500 mg tablet 500 mg PO Q6H PRN Pain 07/31/24 07/31/24 History cholecalciferol (vitamin D3) 1,250 50,000 unit PO WK 07/31/24 07/31/24 History mcg (50,000 unit) capsule cyclobenzaprine 10 mg tablet 10 mg PO HS PRN Muscle Spasm 07/31/24 07/31/24 History ibuprofen 200 mg tablet (Advil) 200 mg PO Q6H PRN Pain 07/31/24 07/31/24 History lisinopril 10 mg tablet 10 mg PO HS 07/31/24 07/31/24 History paroxetine HCl 10 mg tablet 10 mg PO QAM 07/31/24 07/31/24 History paroxetine HCl 20 mg tablet 20 mg PO QAM 07/31/24 07/31/24 History rosuvastatin 10 mg tablet 10 mg PO HS 07/31/24 07/31/24 History tirzepatide 7.5 mg/0.5 mL 7.5 mg subcut WK 07/31/24 07/31/24 History subcutaneous pen injector (Mounjaro) Patient History Medical History DM2 (diabetes mellitus, type 2) HTN (hypertension) HLD (hyperlipidemia) Chest pain, rule out acute myocardial infarction Surgical History No pertinent past surgical history Family History Brother Heart disease Father Heart disease Social History (Updated 07/31/24 @ 13:26 by GRECIA King) Smoking Status: Never smoker Tobacco Type: Cigarettes Smoking End Date: 04/01; Second Hand Exposure: No; Do You Dip or Chew Tobacco: No; Tobacco Cessation Education Requested by Patient: No Hx Alcohol Use: No Hx Substance Use: No Preferred Language: Iraqi Communication Ability: Effective Toolmaker Grade Three Required: No Beliefs That Will Affect Care: None Current Living Situation: Alone Feels Safe at Home: Yes Safety Concerns: Feels Safe At This Time Assistive Devices: None Review of Systems Review of Systems: All systems reviewed & are unremarkable except as noted in HPI & below Physical Exam Physical Exam: General: no acute distress and stated age Eyes: conjunctiva are pink and non-injected, sclera clear Neck: normal jugular venous pulse, no hepatojugular reflux Chest: normal shape and normal respiratory effort Lungs: clear to auscultation and percussion Cardiac Exam: - regular heart sounds, no murmurs, rubs, or gallops, no jugular venous distention Abdomen: abdomen soft, non-tender, no abnormal masses and no hepatosplenomegaly Musculoskeletal: no gait disturbance, no weakness Extremities: no edema and no cyanosis Neuro:awake, conversant, follows commands, no focal motor deficits Psych: appropriate affect and insight. Results & Data Vital Signs (Past 12 Hours) Vital Signs Temp Pulse Resp BP Pulse Ox O2 Del Method 08/01/24 07:48 36.7 C 77 20 109/77 99 Room Air 08/01/24 03:37 36.6 C 81 18 107/70 97 Room Air 07/31/24 23:18 36.5 C 73 18 103/65 98 Room Air Laboratory Results Cardiac Enzymes 07/31/24 07/31/24 Range/Units 10:10 12:42 AST 17 (13-39) U/L Troponin I High Sens < 2.3 < 2.3 (0-20) pg/ml Coagulation 07/31/24 Range/Units 10:10 PT 10.7 (9.0-12.0) Seconds APTT 27 (21-31) Seconds CBC 07/31/24 Range/Units 10:10 WBC 13.62 H (4.8-10.8) K/ul RBC 4.63 L (4.70-6.10) M/uL Hgb 14.7 (14.0-18.0) g/dl Hct 43.4 (42.0-52.0) % Plt Count 375 (130-400) K/uL Neut # (Auto) 9.07 H (1.40-6.50) K/uL Lymph # (Auto) 3.21 (1.20-3.40) K/uL Weld # (Auto) 0.92 H (0.11-0.59) K/uL Eos # (Auto) 0.36 (0.00-0.50) K/uL Baso # (Auto) 0.03 (0.00-0.20) K/uL Comprehensive Metabolic Panel 07/31/24 Range/Units 10:10 Sodium 138 (136-145) mmol/L Potassium 4.3 (3.5-5.1) mmol/L Chloride 103 (98-107) mmol/L Carbon Dioxide 26 (21-32) mmol/L BUN 15 (6-23) mg/dl Creatinine 0.88 (0.6-1.4) mg/dl Glucose 102 H (70-99(Fasting)) mg/dl Calcium 9.5 (8.6-10.3) mg/dl AST 17 (13-39) U/L ALT 17 (7-52) U/L Alkaline Phosphatase 98 (34-104) U/L Total Protein 7.3 (6.0-8.3) gm/dl Albumin 4.3 (3.4-5.0) gm/dl Intake and Output 07/31/24 08/01/24 08/01/24 22:59 06:59 14:59 Intake Total 500 / 1489.333 989.333 / 1489.333 Balance 500 / 1489.333 989.333 / 1489.333 Intake: IV 500 / 1489.333 989.333 / 1489.333 D5w and 1/2Nss 1,000 ml @ 80 989.333 / 989.333 mls/hr IV .[id number] ROSE Rx#: [id number] Sodium Chloride 0.9% 500 ml @ 500 / 500 125 mls/hr IV .Q4H ROSE Rx#: [id number] Other: Other Intake Source npo NPO # Unmeasured Voids 0 1 Weight 102.058 kg 102.5 kg Weight Measurement Method Built in Bedscale Standing Scale Diagnostic Findings CT angiogram of the chest revealed no pulmonary embolism, no thoracic aortic aneurysm or dissection per radiology report CT angiogram of the head and neck revealed no abnormalities Per radiology report Lower extremity venous duplex was negative for DVT bilaterally. EKG performed 07/31/2024 at 9:55 AM interpreted independently revealed normal sinus rhythm at 87 bpm, no ST segment changes to suggest ischemia Repeat tracing performed 08/01/[address] segments.
[2024-08-01] MEDS: ENOXAPARIN INJ 40 MG/0.4 ML SYR SQ SCH (10:18)
[2024-08-01] MEDS: PARoxetine HCL 20 MG TAB PO SCH (10:18)
[2024-08-01] MEDS: PARoxetine HCL 10 MG TAB PO SCH (10:18)
[2024-08-01 10:41] VITALS: BP 107/72; PULSE 76; RESP 19; TEMP 97.9; O2SAT 98
--- NOTE | 2024-08-01 10:44 | Electrocardiogram Report ---
Test Reason : Blood Pressure : */* mmHG Vent. Rate : 68 BPM Atrial Rate : 68 BPM P-R Int : 198 ms QRS Dur : 90 ms QT Int : 402 ms P-R-T Axes : 74 14 54 degrees QTcB Int : 427 ms Normal sinus rhythm Low voltage QRS Borderline ECG When compared with ECG of 31-Jul-2024 09:55, No significant change was found Confirmed by Macario Shields ([id number]) on 08/01/2024 10:44:13 AM Referred By: REFERRED SELF Confirmed By: Macario Shields
[2024-08-01 11:02] LABS: Anion Gap 5 (3-11); BUN Creatinine Ratio 16.7 (10-20); Blood Urea Nitrogen 13 mg/dl (6-23); Calcium 8.5 mg/dl (8.6-10.3); Carbon Dioxide 26 mmol/L (21-32); Chloride 107 mmol/L (98-107); Creatinine Clr Calc Pharmacy 148.1 ml/min; Glucose 94 mg/dl (70-99(Fasting)); LDL Cholesterol Direct 36 mg/dl; Potassium 3.9 mmol/L (3.5-5.1); Sodium 138 mmol/L (136-145)
[2024-08-01 11:07] LABS: Basophils # (auto) 0.02 K/uL (0.00-0.20); Basophils % (auto) 0.2 %; Eosinophils # (auto) 0.56 K/uL (0.00-0.50); Eosinophils % (auto) 4.8 %; Hematocrit (blood only) 38.7 % (42.0-52.0); Hemoglobin 12.8 g/dl (14.0-18.0); Immature Granulocytes # (auto) 0.02 K/uL (0.01-0.20); Immature Granulocytes % (auto) 0.2 %; Lymphocytes % (auto) 26.5 %; Mean Corpuscular Hemoglobin 31.1 pg (25.0-34.0); Mean Corpuscular Hgb Conc 33.1 g/dL (32.0-36.0); Mean Corpuscular Volume 94.2 fL (80.0-100.0); Mean Platelet Volume 11.1 fL (9.4-12.4); Monocytes # (auto) 0.94 K/uL (0.11-0.59); Neutrophils # (auto) 7.04 K/uL (1.40-6.50); Neutrophils % (auto) 60.3 %; Platelet Count 319 K/uL (130-400); RDW Coefficient of Variation 13.5 % (11.5-14.5); RDW Standard Deviation 47.1 fL (36.4-46.3); Red Blood Count 4.11 M/uL (4.70-6.10); White Blood Count 11.68 K/ul (4.8-10.8)
[2024-08-01 11:07] LABS: Troponin I High Sensitivity < 2.3 pg/ml (0-20)
--- NOTE | 2024-08-01 13:32 | Communication Note ---
Date of Service: August 01, 2024 Stress echocardiogram is negative for ischemia. The exercise test was terminated due to fatigue and dizziness that the patient noted when he diverted to his glance to the clock. Unequivocal flat blood pressure response was observed. There is no EKG or echocardiographic evidence of inducible ischemia. No symptoms suggestive angina were reproduced with exercise. Would recommend discharge off of the lisinopril. Given LDL cholesterol level 36 mg/dL, would reduce the rosuvastatin dose from 10 mg to 5 mg. Defer recommendations with regards to his diabetes medication to the hospital service. Follow-up with PCP.
--- NOTE | 2024-08-01 15:14 | Discharge Summary ---
Date of Service August 01, 2024 Admission HPI Per Admitting Provider Mr. Chun is a 44 year old male that presents to the ED with exertional chest pain resolving with rest that started after climbing two flights of steps this morning with radiation into his jaw causing twitching. He also reports lightheadedness and weakness. He reports that he has felt confused over the past month intermittently with some blurry vision. He was recently diagnosed with DM2, HTN and HLD around . He reports losing nearly 90 lbs since and is compliant with his medications. Blood sugars range 80-90 in the morning. May be a component of his dose requiring adjustment given his weight loss. Family History of AMI (brother and father). reportedly quit smoking 5 months ago. No alcohol use, occasional recreational THC gummy. In the ED, mild leukocytosis 13.62, otherwise electrolytes unremarkable. No transaminitis, initial troponin negative, D-dimer negative. He was started on IV fluids in the ED and loading dose of aspirin. Chest CTA, head/neck CTA, and CXR all unremarkable and no signs of dissection or stenosis. Reports that this medical care is [facility] in [place], [place] and his symptoms started just before for which a stress test was performed as an outpatient and negative. 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 He reports he has had green sputum that started a few days ago. Otherwise, denies current Chest pain, palpitations, SOB, orthopnea, N/V/D, recent falls or trauma. For now, given the persistent symptoms he has been having over the past few months, he will be admitted for further evaluation and management. We will trend Troponin levels, obtain ECHO, ortho BPs, obtain biofire, UA, and obtain formal Cardiology consultation. Will hold Lisinopril given soft BP and will ask glycemic pharmacy to monitor. Please see A/P for further information. Admission Exam Per Admitting Provider Neuro: AAOx4, PERRLA, no aphagia, memory changes, CNII-XII grossly intact HEENT: head normocephalic, moist mucus membranes CV: S1/S2, (-) M/G/R, (-) edema, cap refill < 3 seconds Resp: Lungs CTA in all sullivan. On RA GI: Abdomen S/NT/ND, Ax4 bowel sounds, (-) CVA tenderness Musculoskeletal: 5/5 B/L UE strength, 5/5 B/L LE strength. No gait disturbance Skin: (-) rashes , (-) erythema. Psych: euthymic, but flat mood Principal Diagnosis Chest pain, ACS rule out Discharge Exam Neuro: AAOx4, PERRLA, no aphagia, memory changes, CNII-XII grossly intact HEENT: head normocephalic, moist mucus membranes CV: S1/S2, (-) M/G/R, (-) edema, cap refill < 3 seconds Resp: Lungs CTA in all sullivan. On RA GI: Abdomen S/NT/ND, Ax4 bowel sounds, (-) CVA tenderness Musculoskeletal: 5/5 B/L UE strength, 5/5 B/L LE strength. No gait disturbance Skin: (-) rashes , (-) erythema. Psych: euthymic, but flat mood Discharge Data Allergies Allergy/AdvReac Type Severity Reaction Status Date / Time No Known Allergies Allergy Unverified 07/31/24 12:21 Consultations 07/31/24 12:29 Consult Cardiology Routine 07/31/24 12:30 ED Decision to Admit Stat Ordered Studies 07/31/24 10:48 CT angio chest PE protocol Stat CT angio head wo/w Stat CT angio neck with con Stat 07/31/24 12:30 US venous doppler LE BI Stat Hospital Course (1) Chest pain, rule out acute myocardial infarction: (2) HLD (hyperlipidemia): (3) HTN (hypertension): (4) DM2 (diabetes mellitus, type 2): Plan 44y/o male that presents to the ED with exertional chest pain resolving with rest that started after climbing two flights of steps this morning with radiation into his jaw causing twitching. Patient also reported dizziness during the episode. Patient was admitted to telemetry; underwent workup including EKG and high sensitive troponin. EKG did not show any significant ST or T wave changes. High sensitive troponin were negative. Cardiology was consulted for comanagement; patient underwent stress echocardiogram which was within normal limits. Patient's lisinopril was discontinued as he remained normotensive throughout the hospitalization. The rosuvastatin was decreased to 5 mg once a day from 10 mg once a day as his LDL was in lower normal range. Please note the above document was generated using voice recognition software. It may contain grammatical, syntax or spelling errors. Any formal questions or concerns about the content, text or information contained within the body of this dictation should be directly addressed to the provider for clarification Total Time Total Time Spent Total Time Spent (In Minutes): 45 Total Time Includes: Examination of the Patient, Discharge Planning, Medication Reconciliation, Communication With Other Providers and Other Discharge Plan Discharge Items Patient Disposition: Home - Self-Care Reason For Visit: EXERTIONAL CHEST PAIN Discharge Diagnosis: Chest pain, ACS ruled out Condition on Discharge: Good Activity: Resume your previous activity Non-emergency contact: Primary Care Provider Call non-emergency contact if: you have any medication questions and your symptoms worsen Follow-up/Referrals: Penelope Mcfarlane CRNP [Primary Care Provider] - (Please follow up with your primary care physician in 1 week. We will call for F/U appointment tomorrow. ) Diet: Regular Addtl Attending Provider Instructions: You were admitted to the hospital with dizziness and chest pain. You underwent evaluation by cardiology during the hospitalization. Your blood pressure throughout the hospitalization was within normal limits. Lisinopril has been stopped as it could have contributed to the dizziness. Please continue to measure your blood pressure daily at home. The dose of the rosuvastatin has been decreased to 5 mg once a day. Pending Studies at Discharge: No Stand-Alone Forms: [email or web address], Smoking Cessation Medications and DC Order Prescriptions: Continued cyclobenzaprine 10 mg tablet 10 mg PO HS PRN (Reason: Muscle Spasm) paroxetine HCl 10 mg tablet 10 mg PO QAM Rx Instructions: Take w/ 20mg to equal 30mg acetaminophen 500 mg Tablet 500 mg PO Q6H PRN (Reason: Pain) paroxetine HCl 20 mg tablet 20 mg PO QAM Rx Instructions: Take w/ 10mg to equal 30mg ibuprofen [Advil] 200 mg Tablet 200 mg PO Q6H PRN (Reason: Pain) cholecalciferol (vitamin D3) 1,250 mcg (50,000 unit) capsule 50,000 unit PO WK Rx Instructions: Tuesday Mounjaro 7.5 mg/0.5 mL pen injector 7.5 mg SUBCUT WK Rx Instructions: Tuesday Changed rosuvastatin 10 mg tablet 5 mg PO HS Qty: 30 0RF Discontinued lisinopril 10 mg tablet 10 mg PO HS Discharge Orders: Discharge Order (Routine); Ordered 08/01/24 Ordered By: Jon Eugene Admission Data Admit Date/Time: 07/31/24 12:29 Attending Provider: Jon Eugene Admit Provider: Jovani Matthews Primary Care Provider: Penelope Mcfarlane Other Providers: Terrance Elkins; Jovani Matthews Other Interventions: Discharge Summary Assessment (RN) Last Done: 08/01/24 15:09
[2024-08-06] MEDS ORDERED: ERGOCALCIFEROL 1250 MCG (50,000 UNITS) CAP PO SCH (09:00)
== END 2024-08-01 15:44 | disposition home or self-care (01) | DRG 313 ==
LOC: ED 09:45 → SUATTDRO 12:29 → EDINP 12:29 → 2S 13:02
DX: R07.9 Chest pain, unspecified; I95.2 Hypotension due to drugs; E16.0 Drug-induced hypoglycemia without coma; Z79.899 Other long term (current) drug therapy; E11.9 Type 2 diabetes mellitus without complications; Z87.891 Personal history of nicotine dependence; F32.A Depression, unspecified; E78.5 Hyperlipidemia, unspecified; Z79.85 Long-term (current) use of injectable non-insulin antidiabetic drugs; I10 Essential (primary) hypertension; T46.4X5A Adverse effect of angiotensin-converting-enzyme inhibitors, initial encounter; Z82.49 Family history of ischemic heart disease and other diseases of the circulatory system